=== PATIENT | female | born 1945 | race Caucasian/White ===

== ENCOUNTER 2023-03-07 17:47 | Emergency (ER) | payer MEDICARE, OTHER ==
--- NOTE | 2023-03-07 17:51 | ERPHSYRPT ---
- History of Present Illness Source: patient, family Exam Limitations: no limitations Timing/Duration: today Severity: mild Associated Symptoms: nausea, vomiting, other (Diarrhea), No abdominal pain, No chest pain <JOSÉ ANTONIO ROBERSON - Last Filed: 03/07/23 18:53> <CAMILO WELLINGTON - Last Filed: 03/07/23 20:46> - History of Present Illness Time Seen by Provider: 03/07/23 17:51 Physician History: This is a 77-year-old obese white female who presents with nausea vomiting after being out in the heat all day today. She started out having some nausea fo llowed by vomiting and then few episodes of diarrhea. She feels better now. She denies chest pain. She denies shortness of breath. She has no abdominal pain. (JOSÉ ANTONIO ROBERSON) Allergies/Adverse Reactions: No Known Drug Allergies Allergy (Verified 03/07/23 18:09) Home Medications: Cholecalciferol (Vitamin D3) [Vitamin D] 50,000 unit PO WEEKLY 03/07/23 [History] Simvastatin [Zocor] 40 mg PO DAILY 03/07/23 [History] Travel Risk - International Travel Have you traveled outside of the country in past 3 weeks: No - Coronavirus Screening Are you exhibiting any of the following symptoms?: Yes Symptoms: Vomiting/Diarrhea Close contact with a COVID-19 positive Pt in past 14-21 Days: No <JOSÉ ANTONIO ROBERSON - Last Filed: 03/07/23 18:53> - Review of Systems Constitutional: Weakness Eyes: No Symptoms Ears, Nose, & Throat: No Symptoms Respiratory: No Symptoms Cardiac: No Symptoms Abdominal/Gastrointestinal: Nausea, Vomiting, Diarrhea, No Abdominal Pain, No Constipation Genitourinary Symptoms: No Symptoms Musculoskeletal: No Symptoms Skin: No Symptoms Neurological: No Symptoms Psychological: No Symptoms Endocrine: No Symptoms Hematologic/Lymphatic: No Symptoms Immunological/Allergic: No Symptoms All Other Systems: Reviewed and Negative <JOSÉ ANTONIO ROBERSON - Last Filed: 03/07/23 18:53> - Past Medical History Pertinent Past Medical History: Yes - Past Surgical History Past Surgical History: Yes <JOSÉ ANTONIO ROBERSON - Last Filed: 03/07/23 18:53> - Physical Exam General Appearance: no apparent distress, alert, anxiety, obese Eye Exam: PERRL/EOMI, eyes nml inspection Ears, Nose, Throat Exam: normal ENT inspection, moist mucous membranes Neck Exam: normal inspection, non-tender, supple, full range of motion Respiratory Exam: normal breath sounds, lungs clear, airway intact, No chest tenderness, No respiratory distress Cardiovascular Exam: regular rate/rhythm, normal heart sounds, normal peripheral pulses Gastrointestinal/Abdomen Exam: soft, normal bowel sounds, No tenderness Pelvic Exam: not done Rectal Exam: not done Back Exam: normal inspection, normal range of motion, No CVA tenderness, No vertebral tenderness Extremity Exam: normal inspection, normal range of motion, pelvis stable Neurologic Exam: alert, oriented x 3, cooperative, 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 II-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 nml as tested, normal mood/affect, nml cerebellar function, nml station & gait, sensation nml Skin Exam: normal color, warm, dry Lymphatic Exam: No adenopathy SpO2 Interpretation: normal O2 Delivery: Room Air <JOSÉ ANTONIO ROBERSON - Last Filed: 03/07/23 18:53> - Nursing Vital Signs Nursing Vital Signs: Initial Vital Signs Temperature 98.4 F 03/07/23 17:53 Pulse Rate 82 03/07/23 17:53 Respiratory Rate 21 03/07/23 17:53 Blood Pressure 130/82 03/07/23 17:53 O2 Sat by Pulse Oximetry 95 03/07/23 17:53 Pain Scale Pain Intensity 0 - Course Nursing assessment & vital signs reviewed: Yes EKG Interpreted by Me: Sinus Rhythm, NORMAL AXIS, NORMAL INTERVALS, NORMAL ST-T, Other (Acute ischemic changes on today's twelve-lead EKG.) <JOSÉ ANTONIO ROBERSON - Last Filed: 03/07/23 18:53> Ordered Tests: Active Orders 24 hr Category Date Time Status IV Insertion STAT Care 03/07/23 18:38 Active CBC W DIFF Stat Lab 03/07/23 19:05 Completed CMP Stat Lab 03/07/23 19:05 Completed CULTURE,URINE Stat Lab 03/07/23 20:10 Received Lactic Acid Stat Lab 03/07/23 18:38 Completed TROPONIN Q4H Lab 03/07/23 19:10 Completed TROPONIN Q4H Lab 03/07/23 23:15 Ordered UA W/RFX UR CULTURE Stat Lab 03/07/23 20:10 Completed Medication Summary Discontinued Medications Generic Name Dose Route Start Last Admin Trade Name Delmi PRN Reason Stop Dose Admin Sodium Chloride 1,000 mls @ 999 mls/hr 03/07/23 18:38 03/07/23 18:48 Sodium Chloride 0.9% 1000 Ml IV 03/07/23 19:38 999 mls/hr .Q1H1M STA Administration Sodium Chloride Confirm 03/07/23 18:42 Sodium Chloride 0.9% 1000 Ml Administered 03/07/23 18:43 Dose 1,000 mls @ ud .ROUTE .STK-[facility] ONE Ondansetron HCl 4 mg 03/07/23 18:41 03/07/23 18:48 Ondansetron Hcl 4 Mg/2 Ml Vial IV 03/07/23 18:42 4 mg STAT ONE Administration Ondansetron HCl Confirm 03/07/23 18:42 Ondansetron Hcl 4 Mg/2 Ml Vial Administered 03/07/23 18:43 Dose 4 mg .ROUTE .STK-MED ONE Lab/Rad Data: Laboratory Result Diagrams 03/07/23 19:05 03/07/23 19:05 Laboratory Results 03/07/23 03/07/23 03/07/23 Range/Units 20:10 19:10 19:05 WBC (4.0-10.5) x10^3/uL RBC (4.1-5.4) x10^6/uL Hgb (12.0-16.0) g/dL Hct (35-47) % MCV (78-100) fL MCH (26-32) pg MCHC (32-36) g/dL RDW (11.5-14.0) % Plt Count (150-450) x10^3/uL MPV (7.5-11.0) fL Gran % (36.0-66.0) % Immature Gran % (Auto) (0.00-0.4) % Nucleat RBC Rel Count (0.00-0.1) % Eos # (Auto) (0-0.5) x10^3/uL Immature Gran # (Auto) (0.00-0.03) x10^3u/L Absolute Lymphs (auto) (1.0-4.6) x10^3/uL Absolute Monos (auto) (0.0-1.3) x10^3/uL Absolute Nucleated RBC (0.00-0.01) x10^3u/L Lymphocytes % (24.0-44.0) % Monocytes % (0.0-12.0) % Eosinophils % (0.00-5.0) % Basophils % (0.0-0.4) % Absolute Granulocytes (1.4-6.9) x10^3/uL Basophils # (0-0.4) x10^3/uL Sodium (137-145) mmol/L Potassium (3.5-5.1) mmol/L Chloride (98-107) mmol/L Carbon Dioxide (22-30) mmol/L Anion Gap (5-15) MEQ/L BUN (7-17) mg/dL Creatinine (0.52-1.04) mg/dL Estimated GFR ML/MIN Glucose (74-106) mg/dL Lactic Acid (0.4-2.0) Calcium (8.4-10.2) mg/dL Total Bilirubin (0.2-1.3) mg/dL AST (14-36) U/L ALT (0-35) U/L Alkaline Phosphatase (38-126) U/L Troponin I < 0.012 (0.000-0.034) ng/mL Serum Total Protein (6.3-8.2) g/dL Albumin (3.5-5.0) g/dL Urine Color Yellow (Yellow) Urine Appearance Clear (Clear) Urine pH 6.0 (4.6-8.0) Ur Specific [place] 1.010 (1.005-1.030) Urine Protein Negative (Negative) Urine Glucose (UA) Negative (Negative) mg/dL Urine Ketones Negative (Negative) Urine Blood Trace (Negative) Urine Nitrite Negative (Negative) Urine Bilirubin Negative (Negative) Urine Urobilinogen 0.2 (0.2) mg/dL Ur Leukocyte Esterase Trace A (Negative) U Hyaline Cast (Auto) NONE SEEN (0-2) /LPF Urine Microscopic RBC 0-2 (0-5) /HPF Urine Microscopic WBC 0-2 (0-5) /HPF Ur Epithelial Cells None Seen (None Seen) /HPF Urine Bacteria None Seen (None Seen) /HPF Urine Culture Reflexed YES (NO) Influenza Type A Ag NEGATIVE (NEGATIVE) Influenza Type B Ag NEGATIVE (NEGATIVE) RSV (PCR) NEGATIVE (NEGATIVE) SARS-CoV-2 (PCR) NEGATIVE (NEGATIVE) 03/07/23 03/07/23 03/07/23 Range/Units 19:05 19:05 18:38 WBC 12.3 H (4.0-10.5) x10^3/uL RBC 4.25 (4.1-5.4) x10^6/uL Hgb 13.7 (12.0-16.0) g/dL Hct 42.3 (35-47) % MCV 99.5 (78-100) fL MCH 32.2 H (26-32) pg MCHC 32.4 (32-36) g/dL RDW 13.0 (11.5-14.0) % Plt Count 211 (150-450) x10^3/uL MPV 9.6 (7.5-11.0) fL Gran % 83.6 H (36.0-66.0) % Immature Gran % (Auto) 0.3 (0.00-0.4) % Nucleat RBC Rel Count 0.0 (0.00-0.1) % Eos # (Auto) 0.13 (0-0.5) x10^3/uL Immature Gran # (Auto) 0.04 H (0.00-0.03) x10^3u/L Absolute Lymphs (auto) 0.81 L (1.0-4.6) x10^3/uL Absolute Monos (auto) 1.01 (0.0-1.3) x10^3/uL Absolute Nucleated RBC 0.00 (0.00-0.01) x10^3u/L Lymphocytes % 6.6 L (24.0-44.0) % Monocytes % 8.2 (0.0-12.0) % Eosinophils % 1.1 (0.00-5.0) % Basophils % 0.2 (0.0-0.4) % Absolute Granulocytes 10.27 H (1.4-6.9) x10^3/uL Basophils # 0.03 (0-0.4) x10^3/uL Sodium 137 (137-145) mmol/L Potassium 3.9 (3.5-5.1) mmol/L Chloride 105 (98-107) mmol/L Carbon Dioxide 23 (22-30) mmol/L Anion Gap 13.3 (5-15) MEQ/L BUN 17 (7-17) mg/dL Creatinine 0.60 (0.52-1.04) mg/dL Estimated GFR > 60.0 ML/MIN Glucose 114 H (74-106) mg/dL Lactic Acid 0.6 (0.4-2.0) Calcium 9.0 (8.4-10.2) mg/dL Total Bilirubin 0.80 (0.2-1.3) mg/dL AST 28 (14-36) U/L ALT 17 (0-35) U/L Alkaline Phosphatase 65 (38-126) U/L Troponin I (0.000-0.034) ng/mL Serum Total Protein 7.7 (6.3-8.2) g/dL Albumin 4.2 (3.5-5.0) g/dL Urine Color (Yellow) Urine Appearance (Clear) Urine pH (4.6-8.0) Ur Specific [place] (1.005-1.030) Urine Protein (Negative) Urine Glucose (UA) (Negative) mg/dL Urine Ketones (Negative) Urine Blood (Negative) Urine Nitrite (Negative) Urine Bilirubin (Negative) Urine Urobilinogen (0.2) mg/dL Ur Leukocyte Esterase (Negative) U Hyaline Cast (Auto) (0-2) /LPF Urine Microscopic RBC (0-5) /HPF Urine Microscopic WBC (0-5) /HPF Ur Epithelial Cells (None Seen) /HPF Urine Bacteria (None Seen) /HPF Urine Culture Reflexed (NO) Influenza Type A Ag (NEGATIVE) Influenza Type B Ag (NEGATIVE) RSV (PCR) (NEGATIVE) SARS-CoV-2 (PCR) (NEGATIVE) - Progress Progress: improved, re-examined Counseled pt/family regarding: lab results, diagnosis, need for follow-up <JOSÉ ANTONIO ROBERSON - Last Filed: 03/07/23 18:53> <CAMILO WELLINGTON - Last Filed: 03/07/23 20:46> - Progress Progress Note: 03/07/23 19:05 This patient being signed out to Dr. Turpin at shift change. He will review the results of the work-up and make final disposition. (JOSÉ ANTONIO ROBERSON) Patient received 1000 mL bag of normal saline ports feeling well. His urine has no significant findings. Patient to continue stay hydrated tonight. Just urine results and importance of following up with her primary care doctor. Patient verbalized understanding. 03/07/23 20:45 (CAMILO WELLINGTON) - Departure Departure Disposition: Home Critical Care Time: No <JOSÉ ANTONIO ROBERSON - Last Filed: 03/07/23 18:53> - Departure Departure Disposition: Home <CAMILO WELLINGTON - Last Filed: 03/07/23 20:46> - Departure Clinical Impression: Vomiting and diarrhea, Weakness Condition: Stable Referrals: ROXANNE ROWELL [Primary Care Provider] - Follow up/PCP as directed
[2023-03-07] MEDS ORDERED: Sodium Chloride 0.9% 1000 ML 1,000 ML IV STA (18:38)
[2023-03-07] MEDS ORDERED: Zofran 4 MG/2 ML VIAL IV ONE (18:41)
[2023-03-07] MEDS ORDERED: Sodium Chloride 0.9% 1000 ML 1,000 ML ONE (18:42)
[2023-03-07] MEDS ORDERED: Zofran 4 MG/2 ML VIAL ONE (18:42)
[2023-03-07 19:07] LABS: Absolute Neutrophil Ct (ANC) 10.27 x10^3/uL (1.4-6.9); BASOPHIL % 0.2 % (0.0-0.4); Basophil (Absolute #) 0.03 x10^3/uL (0-0.4); Eosinophil % 1.1 % (0.00-5.0); Eosinophil (Absolute #) 0.13 x10^3/uL (0-0.5); Hematocrit 42.3 % (35-47); Hemoglobin 13.7 g/dL (12.0-16.0); IMMATURE GRAN # 0.04 x10^3u/L (0.00-0.03); IMMATURE GRAN % 0.3 % (0.00-0.4); Lymphocyte (Absolute #) 0.81 x10^3/uL (1.0-4.6); Lymphocytes % 6.6 % (24.0-44.0); Mean Cell Volume 99.5 fL (78-100); Mean Corpuscular Hemoglobin 32.2 pg (26-32); Mean Corpuscular Hgb Concent. 32.4 g/dL (32-36); Mean Platelet Volume 9.6 fL (7.5-11.0); Monocyte (Absolute #) 1.01 x10^3/uL (0.0-1.3); Monocytes % 8.2 % (0.0-12.0); Neutrophil % 83.6 % (36.0-66.0); Platelet Count 211 x10^3/uL (150-450); Red Blood Count 4.25 x10^6/uL (4.1-5.4); White Blood Count 12.3 x10^3/uL (4.0-10.5)
[2023-03-07 19:24] LABS: ALBUMIN 4.2 g/dL (3.5-5.0); ALKALINE PHOSPHATASE 65 U/L (38-126); ANION GAP 13.3 MEQ/L (5-15); BLOOD UREA NITROGEN 17 mg/dL (7-17); CHLORIDE 105 mmol/L (98-107); Carbon Dioxide 23 mmol/L (22-30); EST GLOMERULAR FILTRATION RATE > 60.0 ML/MIN; Glucose 114 mg/dL (74-106); Potassium 3.9 mmol/L (3.5-5.1); SGOT/AST 28 U/L (14-36); SGPT/ALT 17 U/L (0-35); SODIUM 137 mmol/L (137-145); Total Protein 7.7 g/dL (6.3-8.2)
[2023-03-07 19:43] LABS: INFLUENZA A NEGATIVE (NEGATIVE); INFLUENZA B NEGATIVE (NEGATIVE); RESPIRATORY SYNCTIAL VIRUS NEGATIVE (NEGATIVE); SARS-CoV-2 Xpert Express NEGATIVE (NEGATIVE)
[2023-03-07 20:29] LABS: Appearance Clear (Clear); Bacteria None Seen /HPF (None Seen); Bilirubin Negative (Negative); Blood Trace (Negative); Epithelial Cells None Seen /HPF (None Seen); Glucose, Urine Negative (Negative); Hyaline Casts NONE SEEN /LPF (0-2); Ketones Negative (Negative); Leukocyte Esterase Trace (Negative); Nitrite Negative (Negative); Protein,Urine Dip Negative (Negative); RBC 0-2 /HPF (0-5); Urobilinogen 0.2 mg/dL (0.2); WBC 0-2 /HPF (0-5)
[2023-03-07 20:30] LABS: ADD URINE CULTURE? YES (NO)
[2023-03-07 21:01] VITALS: BP 140/75; PULSE 89; O2SAT 94
== END 2023-03-07 21:01 | disposition home or self-care (01) ==
LOC: ED 17:47
DX: R11.2 Nausea with vomiting, unspecified (principal); R19.7 Diarrhea, unspecified; R53.1 Weakness; Z79.899 Other long term (current) drug therapy; Z20.828 Contact with and (suspected) exposure to other viral communicable diseases
CPT/HCPCS: 0241U; 36000; 36415; 80053; 81001; 83605; 84484; 85025; 87086; 96374; 99284; J2405

== ENCOUNTER 2023-03-08 11:11 | Emergency (ER) | payer MEDICARE, OTHER ==
[2023-03-08] MEDS ORDERED: Sodium Chloride 0.9% 1000 ML 1,000 ML IV STA ×2 (11:29→12:34)
[2023-03-08 11:39] VITALS: PULSE 74
--- NOTE | 2023-03-08 11:44 | ERPHSYRPT ---
- History of Present Illness Time Seen by Provider: 03/08/23 11:39 Historian: patient, family Exam Limitations: no limitations Patient Subjective Stated Complaint: Pt states that they called Dr. Sue office today and they were getting ready to call the pt and check up on her and she told them that she had diarrhia twice today and they told her to come back to the ER and get some more fluids Triage Nursing Assessment: Pt brought to the ER by her daughter, yolie trevino, denies pain, looks better today than yesterday, pt was in the heat too long yesterday while at [facility] and began vomiting and having diarrhea, pt came to [facility] and was given one bag of fluid and her primary doctor sent her here today to get some more fluids, pt stated that she felt better yesterday when she left but when she woke up she wasn't feeling 100% and then she had 2 bouts of diarrhea, pulses normal, skin n/w/d Physician History: This is a 77-year-old white female patient who was seen yesterday early evening because of vomiting and diarrhea episodes after spending the majority of the day out in the sun. She initially thought maybe she was having a heatstroke issue. The work-up was completed and I reviewed the old records from the emergency department work-up. There is no obvious urgent or emergent findings on the wor k-up results that I reviewed. However, her primary care provider called her today to see how she was feeling. She had had 2 episodes of diarrheal stools this morning and they recommended that the patient come to the emergency department for more intravenous fluids. The patient denies chest pain. She denies shortness of breath. Her symptoms have improved compared to yesterday but she still not feeling quite herself. She does not have an appetite and has not taken much oral intake on her own since her discharge from the emergency department last night. Timing/Duration: yesterday Activities at Onset: none Quality: cramping Abdominal Pain Onset Location: suprapubic Pain Radiation: no radiation Severity of Pain-Max: mild Severity of Pain-Current: mild Modifying Factors: Improves With: other (Diarrheal stools x2 this morning). Worsens With: vomiting Associated Symptoms: diarrhea, loss of appetite, nausea, weakness, No vomiting Allergies/Adverse Reactions: No Known Drug Allergies Allergy (Verified 03/08/23 11:39) Home Medications: Cholecalciferol (Vitamin D3) [Vitamin D] 50,000 unit PO WEEKLY 03/07/23 [History] Simvastatin [Zocor] 40 mg PO DAILY 03/07/23 [History] Hx Influenza Vaccination/Date Given: Yes Hx Pneumococcal Vaccination/Date Given: Yes Travel Risk - International Travel Have you traveled outside of the country in past 3 weeks: No - Coronavirus Screening Are you exhibiting any of the following symptoms?: No Close contact with a COVID-19 positive Pt in past 14-21 Days: No - Vaccine Status Have you recieved a Covid-19 vaccination: Yes 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 - Vaccination Dates Date of 2cond Vaccination (if applicable): 2020 - Review of Systems Constitutional: Weakness Eyes: No Symptoms Ears, Nose, & Throat: No Symptoms Respiratory: No Symptoms Cardiac: No Symptoms Abdominal/Gastrointestinal: Abdominal Pain, Nausea, Diarrhea, Appetite Changes, No Vomiting Genitourinary Symptoms: No Symptoms Musculoskeletal: No Symptoms Skin: No Symptoms Neurological: No Symptoms Psychological: No Symptoms Endocrine: No Symptoms Hematologic/Lymphatic: No Symptoms Immunological/Allergic: No Symptoms All Other Systems: Reviewed and Negative - Past Medical History Pertinent Past Medical History: Yes Cardiac History: High Cholesterol Female Reproductive Disorders: Breast Cancer Other Medical History: breast cancer twice in the left breast - Past Surgical History Past Surgical History: Yes Female Surgical History: Mastectomy, Lumpectomy Other Surgical History: breast reconstruction - Social History Smoking Status: Former smoker Exposure to second hand smoke: No Drug Use: none Patient Lives Alone: Yes - Nursing Vital Signs Nursing Vital Signs: Initial Vital Signs Temperature 97.6 F 03/08/23 11:27 Pulse Rate 74 03/08/23 11:27 Blood Pressure 123/78 03/08/23 11:27 O2 Sat by Pulse Oximetry 94 L 03/08/23 11:27 Pain Scale Pain Intensity 0 - Physical Exam General Appearance: no apparent distress, alert Eye Exam: PERRL/EOMI, eyes nml inspection Ears, Nose, Throat Exam: normal ENT inspection, moist mucous membranes Neck Exam: normal inspection, non-tender, supple, full range of motion Respiratory Exam: normal breath sounds, lungs clear, airway intact, No chest tenderness, No respiratory distress Cardiovascular Exam: regular rate/rhythm, normal heart sounds, normal peripheral pulses Gastrointestinal/Abdomen Exam: soft, normal bowel sounds, tenderness (Very mild bilateral suprapubic tenderness to palpation), No rebound Pelvic Exam: not done Rectal Exam: not done Back Exam: normal inspection, normal range of motion, No CVA tenderness, No vertebral tenderness Extremity Exam: normal inspection, normal range of motion, pelvis stable Neurologic Exam: alert, oriented x 3, cooperative, project 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 II-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 nml as tested, normal mood/affect, nml cerebellar function, nml station & gait, sensation nml Skin Exam: normal color, warm, dry Lymphatic Exam: No adenopathy SpO2 Interpretation: normal, borderline oxygenation SpO2: 94 O2 Delivery: Room Air Ordered Tests: Active Orders 24 hr Category Date Time Status IV Insertion STAT Care 03/08/23 11:29 Active ABDOMEN AND PELVIS W/0 CONTRAS [CT] Stat Exams 03/08/23 11:30 Completed AMYLASE Stat Lab 03/08/23 11:44 Completed CBC W DIFF Stat Lab 03/08/23 11:44 Completed CMP Stat Lab 03/08/23 11:44 Completed LIPASE Stat Lab 03/08/23 11:44 Completed Lactic Acid Stat Lab 03/08/23 11:45 Completed UA W/RFX UR CULTURE Stat Lab 03/08/23 13:54 Completed Medication Summary Generic Name Dose Route Start Last Admin Trade Name Freq PRN Reason Stop Dose Admin Acetaminophen 1,000 mg 03/08/23 12:45 03/08/23 12:46 Acetaminophen 500 Mg Tablet PO 04/07/23 12:44 1,000 mg Q4H PRN PRN Administration HEADACHE Discontinued Medications Generic Name Dose Route Start Last Admin Trade Name Freq PRN Reason Stop Dose Admin Sodium Chloride 1,000 mls @ 999 mls/hr 03/08/23 11:29 03/08/23 12:48 Sodium Chloride 0.9% 1000 Ml IV 03/08/23 12:29 Infused .Q1H1M STA Infusion Sodium Chloride Confirm 03/08/23 11:46 Sodium Chloride 0.9% 1000 Ml Administered 03/08/23 11:47 Dose 1,000 mls @ ud .ROUTE .STK-MED ONE Sodium Chloride 1,000 mls @ 999 mls/hr 03/08/23 12:34 03/08/23 13:43 Sodium Chloride 0.9% 1000 Ml IV 03/08/23 13:34 Infused .Q1H1M STA Infusion Sodium Chloride Confirm 03/08/23 12:40 Sodium Chloride 0.9% 1000 Ml Administered 03/08/23 12:41 Dose 1,000 mls @ .ROUTE .[facility] ONE Lab/Rad Data: Laboratory Result Diagrams 03/08/23 11:44 03/08/23 11:44 Laboratory Results 03/08/23 03/08/23 03/08/23 Range/Units 13:54 11:45 11:44 WBC (4.0-10.5) x10^3/uL RBC (4.1-5.4) x10^6/uL Hgb (12.0-16.0) g/dL Hct (35-47) % MCV (78-100) fL MCH (26-32) pg MCHC (32-36) g/dL RDW (11.5-14.0) % Plt Count (150-450) x10^3/uL MPV (7.5-11.0) fL Gran % (36.0-66.0) % Immature Gran % (Auto) (0.00-0.4) % Nucleat RBC Rel Count (0.00-0.1) % Eos # (Auto) (0-0.5) x10^3/uL Immature Gran # (Auto) (0.00-0.03) x10^3u/L Absolute Lymphs (auto) (1.0-4.6) x10^3/uL Absolute Monos (auto) (0.0-1.3) x10^3/uL Absolute Nucleated RBC (0.00-0.01) x10^3u/L Lymphocytes % (24.0-44.0) % Monocytes % (0.0-12.0) % Eosinophils % (0.00-5.0) % Basophils % (0.0-0.4) % Absolute Granulocytes (1.4-6.9) x10^3/uL Basophils # (0-0.4) x10^3/uL Sodium 140 (137-145) mmol/L Potassium 4.1 (3.5-5.1) mmol/L Chloride 106 (98-107) mmol/L Carbon Dioxide 25 (22-30) mmol/L Anion Gap 13.2 (5-15) MEQ/L BUN 16 (7-17) mg/dL Creatinine 0.60 (0.52-1.04) mg/dL Estimated GFR > 60.0 ML/MIN Glucose 99 (74-106) mg/dL Lactic Acid 0.9 (0.4-2.0) Calcium 8.5 (8.4-10.2) mg/dL Total Bilirubin 1.00 (0.2-1.3) mg/dL AST 23 (14-36) U/L ALT 14 (0-35) U/L Alkaline Phosphatase 60 (38-126) U/L Serum Total Protein 6.7 (6.3-8.2) g/dL Albumin 3.7 (3.5-5.0) g/dL Amylase 52 (30-110) U/L Lipase 51 (23-300) U/L Urine Color Yellow (Yellow) Urine Appearance Clear (Clear) Urine pH 5.5 (4.6-8.0) Ur Specific [place] 1.015 (1.005-1.030) Urine Protein Negative (Negative) Urine Glucose (UA) Negative (Negative) mg/dL Urine Ketones Trace A (Negative) Urine Blood Trace (Negative) Urine Nitrite Negative (Negative) Urine Bilirubin Negative (Negative) Urine Urobilinogen 0.2 (0.2) mg/dL Ur Leukocyte Esterase Negative (Negative) U Hyaline Cast (Auto) NONE SEEN (0-2) /LPF Urine Microscopic RBC 0-2 (0-5) /HPF Urine Microscopic WBC 0-2 (0-5) /HPF Ur Epithelial Cells None Seen (None Seen) /HPF Urine Bacteria None Seen (None Seen) /HPF Urine Culture Reflexed NO (NO) 03/08/23 Range/Units 11:44 WBC 5.4 (4.0-10.5) x10^3/uL RBC 4.21 (4.1-5.4) x10^6/uL Hgb 13.3 (12.0-16.0) g/dL Hct 42.8 (35-47) % MCV 101.7 H (78-100) fL MCH 31.6 (26-32) pg MCHC 31.1 L (32-36) g/dL RDW 13.2 (11.5-14.0) % Plt Count 216 (150-450) x10^3/uL MPV 9.6 (7.5-11.0) fL Gran % 69.9 H (36.0-66.0) % Immature Gran % (Auto) 0.2 (0.00-0.4) % Nucleat RBC Rel Count 0.0 (0.00-0.1) % Eos # (Auto) 0.20 (0-0.5) x10^3/uL Immature Gran # (Auto) 0.01 (0.00-0.03) x10^3u/L Absolute Lymphs (auto) 0.80 L (1.0-4.6) x10^3/uL Absolute Monos (auto) 0.59 (0.0-1.3) x10^3/uL Absolute Nucleated RBC 0.00 (0.00-0.01) x10^3u/L Lymphocytes % 15.0 L (24.0-44.0) % Monocytes % 11.0 (0.0-12.0) % Eosinophils % 3.7 (0.00-5.0) % Basophils % 0.2 (0.0-0.4) % Absolute Granulocytes 3.74 (1.4-6.9) x10^3/uL Basophils # 0.01 (0-0.4) x10^3/uL Sodium (137-145) mmol/L Potassium (3.5-5.1) mmol/L Chloride (98-107) mmol/L Carbon Dioxide (22-30) mmol/L Anion Gap (5-15) MEQ/L BUN (7-17) mg/dL Creatinine (0.52-1.04) mg/dL Estimated GFR ML/MIN Glucose (74-106) mg/dL Lactic Acid (0.4-2.0) Calcium (8.4-10.2) mg/dL Total Bilirubin (0.2-1.3) mg/dL AST (14-36) U/L ALT (0-35) U/L Alkaline Phosphatase (38-126) U/L Serum Total Protein (6.3-8.2) g/dL Albumin (3.5-5.0) g/dL Amylase (30-110) U/L Lipase (23-300) U/L Urine Color (Yellow) Urine Appearance (Clear) Urine pH (4.6-8.0) Ur Specific [place] (1.005-1.030) Urine Protein (Negative) Urine Glucose (UA) (Negative) mg/dL Urine Ketones (Negative) Urine Blood (Negative) Urine Nitrite (Negative) Urine Bilirubin (Negative) Urine Urobilinogen (0.2) mg/dL Ur Leukocyte Esterase (Negative) U Hyaline Cast (Auto) (0-2) /LPF Urine Microscopic RBC (0-5) /HPF Urine Microscopic WBC (0-5) /HPF Ur Epithelial Cells (None Seen) /HPF Urine Bacteria (None Seen) /HPF Urine Culture Reflexed (NO) - Progress Progress: improved, re-examined Progress Note: 03/08/23 12:38 CT scan of the abdomen pelvis without contrast shows chronic pulmonary findings in the bilateral lower bases of the the patient's lungs. There is no acute intra-abdominal or intrapelvic findings on the study. 03/08/23 12:39 This patient's medical issue is 1 of moderate complexity. The level of complexity and the work-up performed is based on review of the patient's past medical history, review the patient's medication list, review the patient's drug allergy list, history of present illness and physical findings on examination. The work-up includes CT of the abdomen pelvis without contrast, CBC, CMP, amylase, lipase, urinalysis. She has not had any diarrheal stools while here in the emergency department. We placed an intravenous line and provided her with 2 L of normal saline solution intravenously. I did review the results of the patient's work-up. She does show trace ketones which can be associated with mild dehydration. Clinically, the patient states she is feeling much better. We will send a prescription to her pharmacy for Zofran 03/08/23 14:20 Counseled pt/family regarding: lab results, diagnosis, need for follow-up, rad results Medical Desision Making - Independent Historian Additional History obtained from: Child - Diagnostic Testing Diagnostic test were ordered, analyzed, and reviewed by me: No - Risk of complications The pt has a mod risk of morbidity or mortality based on: Need for prescription drug management - Departure Departure Disposition: Home Clinical Impression: Mild dehydration, Diarrhea Condition: Stable Critical Care Time: No Referrals: ROXANNE ROWELL [Primary Care Provider] - Follow up/PCP as directed Additional Instructions: Drink plenty of fluids. Start with clear liquids and do not advance her diet until you are tolerating clear liquids well. Follow-up with your primary care provider on 03/09/2023 for further evaluation and management. Take your medications as prescribed Prescriptions: Ondansetron ODT 4 MG [Zofran Odt 4 mg] 4 mg PO Q6H PRN PRN #10 tablet PRN Reason: Vomiting
[2023-03-08] MEDS ORDERED: Sodium Chloride 0.9% 1000 ML 1,000 ML ONE ×2 (11:46→12:40)
[2023-03-08 11:48] LABS: Absolute Neutrophil Ct (ANC) 3.74 x10^3/uL (1.4-6.9); BASOPHIL % 0.2 % (0.0-0.4); Basophil (Absolute #) 0.01 x10^3/uL (0-0.4); Eosinophil % 3.7 % (0.00-5.0); Hematocrit 42.8 % (35-47); Hemoglobin 13.3 g/dL (12.0-16.0); IMMATURE GRAN # 0.01 x10^3u/L (0.00-0.03); IMMATURE GRAN % 0.2 % (0.00-0.4); Mean Cell Volume 101.7 fL (78-100); Mean Corpuscular Hemoglobin 31.6 pg (26-32); Mean Corpuscular Hgb Concent. 31.1 g/dL (32-36); Mean Platelet Volume 9.6 fL (7.5-11.0); Monocyte (Absolute #) 0.59 x10^3/uL (0.0-1.3); Neutrophil % 69.9 % (36.0-66.0); Platelet Count 216 x10^3/uL (150-450); Red Blood Count 4.21 x10^6/uL (4.1-5.4); Red Cell Distribution Width 13.2 % (11.5-14.0); White Blood Count 5.4 x10^3/uL (4.0-10.5)
[2023-03-08 12:03] LABS: ALBUMIN 3.7 g/dL (3.5-5.0); ALKALINE PHOSPHATASE 60 U/L (38-126); AMYLASE 52 U/L (30-110); ANION GAP 13.2 MEQ/L (5-15); BLOOD UREA NITROGEN 16 mg/dL (7-17); CHLORIDE 106 mmol/L (98-107); Calcium 8.5 mg/dL (8.4-10.2); Carbon Dioxide 25 mmol/L (22-30); EST GLOMERULAR FILTRATION RATE > 60.0 ML/MIN; Glucose 99 mg/dL (74-106); LIPASE 51 U/L (23-300); Potassium 4.1 mmol/L (3.5-5.1); SGOT/AST 23 U/L (14-36); SGPT/ALT 14 U/L (0-35); SODIUM 140 mmol/L (137-145); Total Protein 6.7 g/dL (6.3-8.2)
--- NOTE | 2023-03-08 12:25 | XRAY ---
Indication: Abdomen pain and diarrhea. Multiple contiguous axial images obtained through the abdomen and pelvis without contrast. Comparison: None Lung bases demonstrate pulmonary emphysema and mild bibasilar fibrosis/scarring. Heart not enlarged. Small hiatal hernia. Noncontrasted stomach and bowel loops appear nonobstructed. Appendix not visualized. Scattered descending and sigmoid diverticulosis without diverticulitis. No free fluid/air. Right lobe liver demonstrate 1.4 cm cyst versus hemangioma. Remaining liver, gallbladder, pancreas, spleen, adrenal glands, kidneys, ureters, bladder, and uterus are unremarkable for noncontrast exam. Mild scattered aortoiliac calcifications without AAA. Osseous structures intact with osteopenia, mild/moderate multilevel thoracolumbar degenerative spondylosis, 2 mm L5 anterior listhesis, and mild levoscoliosis centered at L2. Tiny metallic shrapnel posterior left lower chest. Impression: 1. Chronic findings including pulmonary emphysema, pulmonary fibrosis/scarring, hiatal hernia, colonic diverticulosis, hepatic cyst versus hemangioma, arteriosclerotic disease, and chronic bony findings. 2. Remaining CT abdomen/pelvis without contrast exam is negative.
[2023-03-08] MEDS ORDERED: TYLENOL EXTRA STRENGTH 500 MG PO PRN (12:45)
[2023-03-08] MEDS ORDERED: TYLENOL EXTRA STRENGTH 500 MG ONE (12:46)
[2023-03-08 14:08] LABS: Appearance Clear (Clear); Bacteria None Seen /HPF (None Seen); Bilirubin Negative (Negative); Blood Trace (Negative); Epithelial Cells None Seen /HPF (None Seen); Glucose, Urine Negative (Negative); Hyaline Casts NONE SEEN /LPF (0-2); Ketones Trace (Negative); Leukocyte Esterase Negative (Negative); Nitrite Negative (Negative); Ph 5.5 (4.6-8.0); Protein,Urine Dip Negative (Negative); RBC 0-2 /HPF (0-5); Specific Gravity 1.015 (1.005-1.030); Urobilinogen 0.2 mg/dL (0.2); WBC 0-2 /HPF (0-5)
[2023-03-08 14:09] LABS: ADD URINE CULTURE? NO (NO)
[2023-03-08 14:10] VITALS: BP 113/72
[2023-03-08 14:24] VITALS: O2SAT 94
== END 2023-03-08 14:31 | disposition home or self-care (01) ==
LOC: ED 11:11
DX: E86.0 Dehydration (principal); R19.7 Diarrhea, unspecified; E78.5 Hyperlipidemia, unspecified; Z79.899 Other long term (current) drug therapy
CPT/HCPCS: 36000; 36415; 74176; 80053; 81001; 82150; 83605; 83690; 85025; 99284; A9270-GY